=== PATIENT | male | born 1975 | race Caucasian/White ===

== ENCOUNTER 2019-08-17 23:07 | Emergency (ER) | payer SELFPAY ==
[~2019-08-17] VITALS: Ht 177.8 cm; Wt 80.7 kg
[2019-08-18 01:19] LABS: BASOPHILS % (AUTO) 0.9 % (0.0-2.0); EOSINOPHILS # (AUTO) 0.1 K/uL (0.0-0.7); EOSINOPHILS % (AUTO) 1.4 % (0.0-7.0); HEMATOCRIT 40.3 % (36.7-47.1); HEMOGLOBIN 13.7 g/dL (12.5-16.3); LYMPHOCYTES # (AUTO) 2.3 K/uL (20.0-40.0); LYMPHOCYTES % (AUTO) 43.1 % (20.5-51.5); MEAN CORPUSCULAR HEMOGLOBIN 31.9 uug (23.8-33.4); MEAN CORPUSCULAR HGB CONC 34 g/dL (32.5-36.3); MEAN CORPUSCULAR VOLUME 93.9 fL (73.0-96.2); MONOCYTES # (AUTO) 0.4 K/uL (2.0-10.0); MONOCYTES % (AUTO) 7.6 % (0.0-11.0); NEUTROPHILS # (AUTO) 2.5 K/uL (1.8-8.9); PLATELET COUNT (AUTO) 208 K/uL (152-348); WHITE BLOOD COUNT (AUTO) 5.2 K/uL (3.6-10.2)
[2019-08-18 01:21] LABS: CREATININE 0.9 mg/dL (0.6-1.3); POTASSIUM 3.5 mmol/L (3.5-5.1)
--- NOTE | 2019-08-18 02:01 | NUR ---
Patient in bed, no acute distress noted. ALl patient needs attended and met. WIll cotninue to monitor.
[2019-08-18] MEDS ORDERED: HALOPERIDOL LACTATE 5 MG/1 ML VIAL IM ONE (03:00)
[2019-08-18] MEDS ORDERED: HALOPERIDOL LACTATE 5 MG/1 ML VIAL ONE (03:07)
--- NOTE | 2019-08-18 03:32 | NUR ---
Patient attempted to elope x 2. Security at bedside.
--- NOTE | 2019-08-18 04:02 | NUR ---
Patient is AAOx4, ambulating with stable gait. He is able to walk without difficulty. Patient states his significant other will pick him up and is waiting for him outside of the ER. Spoke to Dr William, per ER MD patient is cleared for d/c home. Jc Menchaca RN, Hoang FRANCIS and Sabas FRANCIS all confirmed ER MD statement for patient clearance to d/c. . Verbal ACI. All belongings with patient.
[2019-08-18 04:06] VITALS: BP 128/83
== END 2019-08-18 04:08 | disposition home or self-care (01) ==
LOC: ER 23:10
DX: F10.129 Alcohol abuse with intoxication, unspecified (principal); Y90.8 Blood alcohol level of 240 mg/100 ml or more
CPT/HCPCS: 36415; 80048; 82962; 85025; 96372; 99283; G0480; J1630; A4663